=== PATIENT | female | born 1930 | race Caucasian/White ===

== ENCOUNTER 2020-03-17 12:42 | Emergency (ER) | payer MEDICARE, BC ==
[2020-03-17] MEDS ORDERED: Ondansetron 4 MG Tab.DIS PO ONE (12:43)
[2020-03-17] MEDS ORDERED: Ciprofloxacin 500 MG Tab PO ONE (12:43)
--- NOTE | 2020-03-17 13:16 | EDM.PDOC ---
ED HPI GENERAL MEDICAL PROBLEM - General Stated Complaint: BLOOD PRESSURE Time Seen by Provider: 03/17/20 13:00 Source of Information: Reports: Patient, Family History Limitations: Reports: No Limitations - History of Present Illness INITIAL COMMENTS - FREE TEXT/NARRATIVE: pt c/o epigastric pain describe it as painful recurrent cramps since early this morning around 5 am, report nausea and 2 emesis , went to clinic and noted as well to be hypertensive and pt was redirected here for evaluation, pt denies any fever or chills or any other associated res , CV or gi or urinary sx. pt report Hx of colon cancer followed by colectomy about 8 years ago , has new empty colostomy bag that she placed this morning, tells in the morning there was only small amount of the stool in the bag. Lower abdomen, L>R Pain Score (Numeric/FACES): 4 - Related Data Allergies Allergy/AdvReac Type Severity Reaction Status Date / Time Sulfa (Sulfonamide Allergy Rash Verified 03/17/20 13:43 Antibiotics) trimethoprim Allergy Cannot Verified 03/17/20 13:44 Remember Home Meds: Home Meds Furosemide 10 mg DAILY 03/17/20 [History] ED ROS GENERAL - Review of Systems Review Of Systems: See Below Constitutional: Reports: Fatigue. Denies: Fever, Chills HEENT: Reports: No Symptoms Respiratory: Reports: No Symptoms Cardiovascular: Reports: No Symptoms GI/Abdominal: Reports: Abdominal Pain, Nausea, Vomiting. Denies: Constipation, Diarrhea : Reports: No Symptoms Musculoskeletal: Reports: No Symptoms Skin: Reports: No Symptoms Neurological: Reports: No Symptoms ED EXAM, GENERAL - Physical Exam Exam: See Below Exam Limited By: No Limitations General Appearance: Moderate Distress Eye Exam: Bilateral Eye: Normal Inspection Ears: Normal External Exam Nose: Normal Inspection Throat/Mouth: Normal Inspection, Normal Oropharynx Head: Atraumatic, Normocephalic Neck: Normal Inspection Respiratory/Chest: No Respiratory Distress, Lungs Clear, Normal Breath Sounds Cardiovascular: Normal Peripheral Pulses, Regular Rate, Rhythm, No Murmur GI/Abdominal: Soft, Tender, Other (abd soft none detended , tender over the epigastric area and across lower abd. ). No: Distended Back Exam: Normal Inspection Extremities: Normal Inspection, Normal Range of Motion Course - Vital Signs Text/Narrative:: labs resulted were explained to pt as well imaging studies which shows no acute findings, her UA is consistent with UTI. pt is resting comfortably now, her SBP is at 130 after labetalol and hydralazine. pt sx likely secondary to UTI along with nonspecific abd cramping. her Hypertensive urgency is controlled. pt is medically stable for discharge. pt will be discharge home with cipro and instructions to follow with PCP in 5 days for re-check and HTN mng and repeat ua if needed. urine will be sent for culture. Last Recorded V/S: Last Vital Signs Temp 36.3 C 03/17/20 12:42 Pulse 80 03/17/20 17:00 Resp 18 03/17/20 17:00 BP 139/87 03/17/20 17:00 Pulse Ox 100 03/17/20 17:00 - Orders/Labs/Meds Orders: Active Orders 24 hr Category Date Time Status Abdomen 2V AP Flat Upright [CR] Stat Exams 03/17/20 13:26 Taken Abdomen Pelvis w Cont [CT] Stat Exams 03/17/20 14:33 Taken CULTURE URINE [RM] Stat Lab 03/17/20 12:55 Ordered Sodium Chloride 0.9% [Normal Saline] 500 ml Med 03/17/20 13:19 Active IV .BOLUS Sodium Chloride 0.9% [Saline Flush] Med 03/17/20 15:20 Active 10 ml FLUSH ASDIRECTED PRN Peripheral IV Insertion Adult [OM.PC] Routine Oth 03/17/20 15:21 Ordered Medication Orders Sodium Chloride (Normal Saline) 500 mls @ 999 drops/hr IV .BOLUS ONE Stop: 03/17/20 20:49 Last Admin: 03/17/20 13:38 Dose: 999 drops/hr Documented by: MUMTAZ Sodium Chloride (Saline Flush) 10 ml FLUSH ASDIRECTED PRN PRN Reason: Keep Vein Open Last Admin: 03/17/20 15:22 Dose: 10 ml Documented by: MUMTAZ Labs: Laboratory Tests 03/17/20 03/17/20 03/17/20 Range/Units 13:00 13:05 13:05 WBC 8.5 (4.5-12.0) X10-3/uL RBC 4.57 (3.23-5.20) x10(6)uL Hgb 13.9 (11.5-15.5) g/dL Hct 43.4 (30.0-51.3) % MCV 94.9 (80-96) fL MCH 30.5 (27.7-33.6) pg MCHC 32.1 L (32.2-35.4) g/dL RDW 11.9 (11.5-15.5) % Plt Count 199 (125-369) X10(3)uL Sodium 140 (135-145) mmol/L Potassium 4.3 (3.5-5.3) mmol/L Chloride 104 (100-110) mmol/L Carbon Dioxide 30 (21-32) mmol/L BUN 45 H (7-18) mg/dL Creatinine 2.0 H* (0.55-1.02) mg/dL Est Cr Clr Drug Dosing TNP Estimated GFR (MDRD) 24 L (>60) BUN/Creatinine Ratio 22.5 H (9-20) Glucose 150 H (80-116) mg/dL Calcium 9.3 (8.6-10.2) mg/dL Total Bilirubin 0.7 (0.1-1.3) mg/dL AST 19 (5-25) IU/L ALT 20 (12-36) U/L Alkaline Phosphatase 116 H (56-112) IU/L Troponin I (4.0-60.3) pg/mL Total Protein 7.7 (6.0-8.0) g/dL Albumin 4.1 (3.2-4.6) g/dL Globulin 3.6 g/dL Albumin/Globulin Ratio 1.1 Amylase 228 H (25-115) U/L Lipase (73-393) U/L Urine Color Yellow (YELLOW) Urine Appearance Slightly cloudy (CLEAR) Urine pH 6.0 (5.0-6.5) Ur Specific [place] 1.015 (1.010-1.025) Urine Protein 500 H (NEGATIVE) mg/dL Urine Glucose (UA) Normal (NORMAL) mg/dL Urine Ketones Negative (NEGATIVE) mg/dL Urine Occult Blood Moderate H (NEGATIVE) Urine Nitrite Positive H (NEGATIVE) Urine Bilirubin Negative (NEGATIVE) Urine Urobilinogen Normal (NEGATIVE) mg/dL Ur Leukocyte Esterase Large H (NEGATIVE) Urine RBC 5-10 H (0-5) Urine WBC >100 H (0-5) Ur Squamous Epith Cells Few H (NS,R,O) Urine Bacteria Many H (NS) 03/17/20 03/17/20 Range/Units 13:05 13:05 WBC (4.5-12.0) X10-3/uL RBC (3.23-5.20) x10(6)uL Hgb (11.5-15.5) g/dL Hct (30.0-51.3) % MCV (80-96) fL MCH (27.7-33.6) pg MCHC (32.2-35.4) g/dL RDW (11.5-15.5) % Plt Count (125-369) X10(3)uL Sodium (135-145) mmol/L Potassium (3.5-5.3) mmol/L Chloride (100-110) mmol/L Carbon Dioxide (21-32) mmol/L BUN (7-18) mg/dL Creatinine (0.55-1.02) mg/dL Est Cr Clr Drug Dosing Estimated GFR (MDRD) (>60) BUN/Creatinine Ratio (9-20) Glucose (80-116) mg/dL Calcium (8.6-10.2) mg/dL Total Bilirubin (0.1-1.3) mg/dL AST (5-25) IU/L ALT (12-36) U/L Alkaline Phosphatase (56-112) IU/L Troponin I 9.7 (4.0-60.3) pg/mL Total Protein (6.0-8.0) g/dL Albumin (3.2-4.6) g/dL Globulin g/dL Albumin/Globulin Ratio Amylase (25-115) U/L Lipase 173 (73-393) U/L Urine Color (YELLOW) Urine Appearance (CLEAR) Urine pH (5.0-6.5) Ur Specific [place] (1.010-1.025) Urine Protein (NEGATIVE) mg/dL Urine Glucose (UA) (NORMAL) mg/dL Urine Ketones (NEGATIVE) mg/dL Urine Occult Blood (NEGATIVE) Urine Nitrite (NEGATIVE) Urine Bilirubin (NEGATIVE) Urine Urobilinogen (NEGATIVE) mg/dL Ur Leukocyte Esterase (NEGATIVE) Urine RBC (0-5) Urine WBC (0-5) Ur Squamous Epith Cells (NS,R,O) Urine Bacteria (NS) Meds: Medications Generic Name Dose Route Start Last Admin Trade Name Freq PRN Reason Stop Dose Admin Sodium Chloride 500 mls @ 999 drops/hr 03/17/20 13:19 03/17/20 13:38 Normal Saline IV 03/17/20 20:49 999 drops/hr .BOLUS ONE Administration Sodium Chloride 10 ml 03/17/20 15:20 03/17/20 15:22 Saline Flush FLUSH 10 ml ASDIRECTED PRN Administration Keep Vein Open Discontinued Medications Generic Name Dose Route Start Last Admin Trade Name Kyle PRN Reason Stop Dose Admin Diatrizoate Meglum/Diatrizoate Sod 30 ml 03/17/20 16:21 03/17/20 16:37 Gastrografin 37% PO 03/17/20 16:22 30 ml . DIRECTED ONE Administration Hydralazine HCl 20 mg 03/17/20 14:34 03/17/20 15:17 Apresoline IVPUSH 03/17/20 14:35 20 mg ONETIME ONE Administration Sodium Chloride 500 mls @ 999 mls/hr 03/17/20 14:17 03/17/20 14:18 Normal Saline IV 03/17/20 14:47 999 mls/hr .BOLUS ONE Administration Labetalol HCl 10 mg 03/17/20 13:19 03/17/20 13:47 Normodyne IVPUSH 03/17/20 13:20 10 mg ONETIME ONE Administration Protocol Morphine Sulfate 2 mg 03/17/20 13:19 03/17/20 13:45 Morphine IVPUSH 03/17/20 13:20 2 mg ONETIME ONE Administration Ondansetron HCl 4 mg 03/17/20 13:19 03/17/20 13:38 Zofran IVPUSH 03/17/20 13:20 4 mg ONETIME ONE Administration Departure - Departure Time of Disposition: 17:57 Disposition: Home, Self-Care 01 Clinical Impression: UTI (urinary tract infection) - Discharge Information Instructions: Ondansetron injection, Labetalol injection, Hydralazine injection, Morphine injection solution Referrals: Jose Guadalupe Flores MD [Primary Care Provider] - Forms: ED Department Discharge Sepsis Event Note (ED) - Focused Exam Vital Signs: Vital Signs Temp Pulse Resp BP Pulse Ox 03/17/20 17:00 80 18 139/87 100 03/17/20 16:47 81 18 155/78 H 98 03/17/20 16:06 68 18 145/70 H 99 03/17/20 15:31 78 18 154/70 H 100 03/17/20 15:15 67 18 197/97 H 100 03/17/20 15:05 66 18 220/102 H 99 03/17/20 14:30 68 18 204/85 H 99 03/17/20 14:20 59 L 16 187/81 H 97 03/17/20 14:01 64 18 204/82 H 98 03/17/20 13:31 72 16 239/105 H 99 03/17/20 13:01 69 18 242/107 H 98 03/17/20 12:42 36.3 C 61 16 247/111 H 100 - My Orders Last 24 Hours: My Active Orders 03/17/20 12:55 CULTURE URINE [RM] Stat 03/17/20 13:19 Sodium Chloride 0.9% [Normal Saline] 500 ml IV .BOLUS 03/17/20 13:26 Abdomen 2V AP Flat Upright [CR] Stat 03/17/20 14:33 Abdomen Pelvis w Cont [CT] Stat 03/17/20 15:20 Sodium Chloride 0.9% [Saline Flush] 10 ml FLUSH ASDIRECTED PRN 03/17/20 15:21 Peripheral IV Insertion Adult [OM.PC] Routine - Assessment/Plan Last 24 Hours: My Active Orders 03/17/20 12:55 CULTURE URINE [RM] Stat 03/17/20 13:19 Sodium Chloride 0.9% [Normal Saline] 500 ml IV .BOLUS 03/17/20 13:26 Abdomen 2V AP Flat Upright [CR] Stat 03/17/20 14:33 Abdomen Pelvis w Cont [CT] Stat 03/17/20 15:20 Sodium Chloride 0.9% [Saline Flush] 10 ml FLUSH ASDIRECTED PRN 03/17/20 15:21 Peripheral IV Insertion Adult [OM.PC] Routine
[2020-03-17] MEDS ORDERED: Morphine 2 MG/ML SYRINGE IVPUSH ONE (13:19)
[2020-03-17] MEDS ORDERED: Sodium Chloride 0.9% 500 ML IV ONE ×2 (13:19→14:17)
[2020-03-17] MEDS ORDERED: Ondansetron 4 MG/2 ML SDV IVPUSH ONE (13:19)
[2020-03-17] MEDS ORDERED: Labetalol 20 MG/4 ML Syringe IVPUSH ONE (13:19)
[2020-03-17] MEDS ORDERED: hydrALAZINE 20 MG/ML SDV IVPUSH ONE (14:34)
[2020-03-17] MEDS ORDERED: Sodium Chloride 0.9% 10 ML Syringe FLUSH PRN (15:20)
[2020-03-17] MEDS ORDERED: Diatrizoate Meglumine/Diatrizoate Sodium 37% 30 ML Bottle PO ONE (16:21)
--- NOTE | 2020-03-19 11:08 | CR ---
ABDOMEN TWO VIEW INDICATION: Abdominal pain. Supine and upright views of the abdomen were obtained 03/17/[address] of the abdomen dated 01/05/2008. There appear to be multiple small air-fluid levels in the left lower abdomen--upper pelvis which appear to be in small bowel loops. Findings may be on the basis of an early or partial mid small bowel obstructive process and should be correlated clinically. A paralytic ileus due to inflammatory process could also be present. Evidence of previous surgery is noted which would raise suspicion for adhesions. There is an area of increased density overlying the left iliac bone which may be related to the large bowel. Definite mass lesion was not identified. Calcifications are noted in the abdominal aorta. 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 IMPRESSION: Possibility of a partial or early small bowel obstruction is difficult to exclude. Paralytic ileus could be present in this postsurgical patient. Correlate clinically as to necessity for additional examination such as CT of the abdomen with oral and IV contrast. [facility]
== END 2020-03-17 18:50 | disposition home or self-care (01) ==
LOC: FB.ED 12:42
DX: N39.0 Urinary tract infection, site not specified (principal); Z88.2 Allergy status to sulfonamides; Z79.899 Other long term (current) drug therapy
CPT/HCPCS: 36415; 74019; 74177; 80053; 81001; 82150; 83690; 84484; 85027; 87086; 87088; 87186; 93005; 96361; 96374; 96375; 99284; A9270; J0360; J2270; J2405; J3490; J7040; Q9963

== ENCOUNTER 2022-07-29 10:16 | Inpatient (IN) | payer MEDICARE, BC ==
[2022-07-29] MEDS: Ferrous Sulfate 325 MG Tab PO SCH (21:03)
[2022-07-29] MEDS: Amoxicillin/Clavulanate K 500-125 MG Tab PO SCH (21:03)
[2022-07-29] MEDS: Metoprolol Tartrate 25 MG Tab PO SCH (21:03)
[2022-07-30] MEDS: Metoprolol Tartrate 25 MG Tab PO SCH ×2 (08:27→21:16)
[2022-07-30] MEDS: amLODIPine 10 MG Tab PO SCH (08:27)
[2022-07-30] MEDS: Ferrous Sulfate 325 MG Tab PO SCH ×2 (08:27→21:15)
[2022-07-30] MEDS: Amoxicillin/Clavulanate K 500-125 MG Tab PO SCH ×2 (08:27→21:15)
[2022-07-30] MEDS: Acetaminophen 325 MG Tab PO PRN (14:07)
[2022-07-31] MEDS: Amoxicillin/Clavulanate K 500-125 MG Tab PO SCH ×2 (08:08→20:16)
[2022-07-31] MEDS: Ferrous Sulfate 325 MG Tab PO SCH ×2 (08:08→20:18)
[2022-07-31] MEDS: Metoprolol Tartrate 25 MG Tab PO SCH ×2 (08:08→20:16)
[2022-07-31] MEDS: amLODIPine 10 MG Tab PO SCH (08:08)
[2022-07-31] MEDS: Acetaminophen 325 MG Tab PO PRN (17:14)
[2022-08-01 06:30] LABS: ESTIMATED GFR 33 mL/min (>60)
[2022-08-01] MEDS: Amoxicillin/Clavulanate K 500-125 MG Tab PO SCH (08:42)
[2022-08-01] MEDS: Ferrous Sulfate 325 MG Tab PO SCH ×2 (08:42→20:45)
[2022-08-01] MEDS: Metoprolol Tartrate 25 MG Tab PO SCH ×2 (08:45→20:46)
[2022-08-01] MEDS: amLODIPine 10 MG Tab PO SCH (08:45)
[2022-08-01] MEDS: Acetaminophen 325 MG Tab PO PRN (10:38)
[2022-08-01] MEDS: Acetaminophen/HYDROcodone 325-5 MG Tab PO PRN ×2 (13:52→20:49)
[2022-08-02] MEDS: Ferrous Sulfate 325 MG Tab PO SCH ×2 (09:10→20:24)
[2022-08-02] MEDS: amLODIPine 10 MG Tab PO SCH (09:10)
[2022-08-02] MEDS: Metoprolol Tartrate 25 MG Tab PO SCH ×2 (09:10→20:24)
[2022-08-02] MEDS: Acetaminophen 325 MG Tab PO PRN (10:09)
[2022-08-02] MEDS: Acetaminophen/HYDROcodone 325-5 MG Tab PO PRN (16:51)
[2022-08-03] MEDS: Metoprolol Tartrate 25 MG Tab PO SCH ×2 (08:40→20:46)
[2022-08-03] MEDS: Ferrous Sulfate 325 MG Tab PO SCH ×2 (08:40→20:46)
[2022-08-03] MEDS: amLODIPine 10 MG Tab PO SCH (08:40)
[2022-08-03] MEDS: Acetaminophen 325 MG Tab PO PRN (10:28)
[2022-08-03] MEDS: Acetaminophen/HYDROcodone 325-5 MG Tab PO PRN (14:41)
[2022-08-04] MEDS: amLODIPine 10 MG Tab PO SCH (10:25)
[2022-08-04] MEDS: Acetaminophen 325 MG Tab PO PRN (10:25)
[2022-08-04] MEDS: Metoprolol Tartrate 25 MG Tab PO SCH ×2 (10:25→20:02)
[2022-08-04] MEDS: Ferrous Sulfate 325 MG Tab PO SCH ×2 (10:25→20:02)
[2022-08-04] MEDS ORDERED: Nicotine Polacrilex 2 MG Gum CHEW PRN (11:23)
[2022-08-04] MEDS ORDERED: Nicotine 21 MG/24 Hr Patch TRDERM SCH (11:23)
[2022-08-05] MEDS: Metoprolol Tartrate 25 MG Tab PO SCH ×2 (09:22→21:58)
[2022-08-05] MEDS: amLODIPine 10 MG Tab PO SCH (09:23)
[2022-08-05] MEDS: Ferrous Sulfate 325 MG Tab PO SCH ×2 (09:23→21:58)
[2022-08-06] MEDS: amLODIPine 10 MG Tab PO SCH (08:08)
[2022-08-06] MEDS: Ferrous Sulfate 325 MG Tab PO SCH ×2 (08:08→20:01)
[2022-08-06] MEDS: Metoprolol Tartrate 25 MG Tab PO SCH ×2 (08:08→20:01)
[2022-08-06] MEDS: Acetaminophen 325 MG Tab PO PRN (12:38)
[2022-08-07] MEDS: Metoprolol Tartrate 25 MG Tab PO SCH ×2 (09:08→20:37)
[2022-08-07] MEDS: Ferrous Sulfate 325 MG Tab PO SCH ×2 (09:08→20:37)
[2022-08-07] MEDS: amLODIPine 10 MG Tab PO SCH (09:09)
[2022-08-07] MEDS: Acetaminophen 325 MG Tab PO PRN (09:11)
[2022-08-08] MEDS: amLODIPine 10 MG Tab PO SCH (09:35)
[2022-08-08] MEDS: Metoprolol Tartrate 25 MG Tab PO SCH ×2 (09:35→21:28)
[2022-08-08] MEDS: Ferrous Sulfate 325 MG Tab PO SCH ×2 (09:36→21:10)
[2022-08-08] MEDS: Acetaminophen 325 MG Tab PO PRN (09:41)
[2022-08-09] MEDS: Ferrous Sulfate 325 MG Tab PO SCH ×2 (09:03→20:10)
[2022-08-09] MEDS: amLODIPine 10 MG Tab PO SCH (09:05)
[2022-08-09] MEDS: Metoprolol Tartrate 25 MG Tab PO SCH ×2 (09:06→20:11)
[2022-08-10] MEDS: Ferrous Sulfate 325 MG Tab PO SCH ×2 (08:12→20:33)
[2022-08-10] MEDS: Metoprolol Tartrate 25 MG Tab PO SCH ×2 (08:12→20:34)
[2022-08-10] MEDS: amLODIPine 10 MG Tab PO SCH (08:12)
[2022-08-11] MEDS: Ferrous Sulfate 325 MG Tab PO SCH ×2 (08:25→19:59)
[2022-08-11] MEDS: amLODIPine 10 MG Tab PO SCH (08:29)
[2022-08-11] MEDS: Metoprolol Tartrate 25 MG Tab PO SCH ×2 (08:29→20:00)
[2022-08-12] MEDS: Metoprolol Tartrate 25 MG Tab PO SCH ×2 (09:01→20:13)
[2022-08-12] MEDS: amLODIPine 10 MG Tab PO SCH (09:01)
[2022-08-12] MEDS: Ferrous Sulfate 325 MG Tab PO SCH ×2 (09:01→20:03)
[2022-08-12] MEDS: Acetaminophen 325 MG Tab PO PRN ×2 (09:04→20:07)
[2022-08-13] MEDS: Ferrous Sulfate 325 MG Tab PO SCH ×2 (08:18→20:32)
[2022-08-13] MEDS: amLODIPine 10 MG Tab PO SCH (08:19)
[2022-08-13] MEDS: Metoprolol Tartrate 25 MG Tab PO SCH ×2 (08:19→20:32)
[2022-08-13] MEDS: Acetaminophen 325 MG Tab PO PRN (20:33)
[2022-08-14] MEDS: Ferrous Sulfate 325 MG Tab PO SCH ×2 (08:45→21:26)
[2022-08-14] MEDS: amLODIPine 10 MG Tab PO SCH (08:47)
[2022-08-14] MEDS: Metoprolol Tartrate 25 MG Tab PO SCH ×2 (08:48→21:27)
[2022-08-15] MEDS: Metoprolol Tartrate 25 MG Tab PO SCH ×2 (08:24→22:05)
[2022-08-15] MEDS: amLODIPine 10 MG Tab PO SCH (08:24)
[2022-08-15] MEDS: Ferrous Sulfate 325 MG Tab PO SCH ×2 (08:24→22:05)
[2022-08-16] MEDS: Metoprolol Tartrate 25 MG Tab PO SCH ×2 (09:45→21:07)
[2022-08-16] MEDS: Ferrous Sulfate 325 MG Tab PO SCH ×2 (09:45→21:07)
[2022-08-16] MEDS: amLODIPine 10 MG Tab PO SCH (09:45)
[2022-08-16] MEDS: Acetaminophen 325 MG Tab PO PRN (09:54)
[2022-08-17] MEDS: Metoprolol Tartrate 25 MG Tab PO SCH ×2 (08:08→21:56)
[2022-08-17] MEDS: amLODIPine 10 MG Tab PO SCH (08:08)
[2022-08-17] MEDS: Ferrous Sulfate 325 MG Tab PO SCH ×2 (08:08→21:57)
[2022-08-18] MEDS: amLODIPine 10 MG Tab PO SCH (09:02)
[2022-08-18] MEDS: Ferrous Sulfate 325 MG Tab PO SCH ×2 (09:02→20:21)
[2022-08-18] MEDS: Metoprolol Tartrate 25 MG Tab PO SCH ×2 (09:03→20:22)
[2022-08-18] MEDS: Acetaminophen 325 MG Tab PO PRN (09:09)
[2022-08-19] MEDS: amLODIPine 10 MG Tab PO SCH (08:04)
[2022-08-19] MEDS: Metoprolol Tartrate 25 MG Tab PO SCH ×2 (08:04→21:34)
[2022-08-19] MEDS: Ferrous Sulfate 325 MG Tab PO SCH ×2 (08:04→21:34)
[2022-08-20] MEDS: Ferrous Sulfate 325 MG Tab PO SCH ×2 (08:27→20:01)
[2022-08-20] MEDS: Acetaminophen 325 MG Tab PO PRN (08:28)
[2022-08-20] MEDS: amLODIPine 10 MG Tab PO SCH (08:32)
[2022-08-20] MEDS: Metoprolol Tartrate 25 MG Tab PO SCH ×2 (08:32→20:01)
[2022-08-21] MEDS: amLODIPine 10 MG Tab PO SCH (08:25)
[2022-08-21] MEDS: Ferrous Sulfate 325 MG Tab PO SCH ×2 (08:25→20:50)
[2022-08-21] MEDS: Metoprolol Tartrate 25 MG Tab PO SCH ×2 (08:25→20:50)
[2022-08-21] MEDS: Acetaminophen 325 MG Tab PO PRN ×2 (08:30→20:53)
[2022-08-22] MEDS: Ferrous Sulfate 325 MG Tab PO SCH ×2 (09:37→20:29)
[2022-08-22] MEDS: amLODIPine 10 MG Tab PO SCH (09:37)
[2022-08-22] MEDS: Acetaminophen 325 MG Tab PO PRN (09:37)
[2022-08-22] MEDS: Metoprolol Tartrate 25 MG Tab PO SCH ×2 (09:38→20:29)
[2022-08-23] MEDS: Metoprolol Tartrate 25 MG Tab PO SCH ×2 (08:15→20:36)
[2022-08-23] MEDS: Ferrous Sulfate 325 MG Tab PO SCH ×2 (08:15→20:36)
[2022-08-23] MEDS: amLODIPine 10 MG Tab PO SCH (08:15)
[2022-08-24] MEDS: Metoprolol Tartrate 25 MG Tab PO SCH (08:51)
[2022-08-24] MEDS: Ferrous Sulfate 325 MG Tab PO SCH (08:51)
[2022-08-24] MEDS: amLODIPine 10 MG Tab PO SCH (08:51)
[2022-08-24] MEDS ORDERED: Polyethylene Glycol 3350 Powder 17 GM Packet PO PRN (11:37)
== END 2022-08-24 16:25 | disposition home health service (06) | DRG 948 ==
LOC: FB.MS 13:06
PROVIDERS: ADMIT Family Medicine; ATTEND Family Medicine
DX: R53.1 Weakness (principal); L03.311 Cellulitis of abdominal wall; D50.9 Iron deficiency anemia, unspecified; Z66 Do not resuscitate; I10 Essential (primary) hypertension; R32 Unspecified urinary incontinence; M19.90 Unspecified osteoarthritis, unspecified site; F41.9 Anxiety disorder, unspecified; F32.A Depression, unspecified; Z86.19 Personal history of other infectious and parasitic diseases; Z90.49 Acquired absence of other specified parts of digestive tract; Z87.19 Personal history of other diseases of the digestive system; Z85.038 Personal history of other malignant neoplasm of large intestine; Z79.899 Other long term (current) drug therapy; Z88.2 Allergy status to sulfonamides; Z88.1 Allergy status to other antibiotic agents; Z98.49 Cataract extraction status, unspecified eye; Z90.89 Acquired absence of other organs; Z98.890 Other specified postprocedural states; K59.00 Constipation, unspecified
CPT/HCPCS: 36415; 80048; 85025; 94760; 97110-GO; 97112-GP; 97116-GP; 97161-GP; 97165-GO; 97530-GO; 97530-GP; 97535-GO; 99305; 99308; 99315; A9270-GY